=== PATIENT | female | born 1985 | race Two or more races ===

== ENCOUNTER 2024-10-12 00:06 | Emergency (ER) | payer MEDICAID, SELFPAY ==
[2024-10-12 00:07] VITALS: BMI 26.6
[2024-10-12 00:27] VITALS: BP 122/78; PULSE 68; RESP 16; TEMP 36.8; O2SAT 99
--- NOTE | 2024-10-12 00:36 | XR_ITS ---
Examination: Ultrasound soft tissue left extremity left axilla Technique: High resolution grayscale sonographic images soft tissue left axilla Exam date and time: October 12, 2024 0301 hrs. Indications: Palpable lumps and pain in the left arm.. This week, positive for shingles Findings: Multiple partially cystic structures in the left axilla which may represent necrotic lymph nodes, the largest 3.6 cm Impression: Multiple left axillary lymph nodes, clinical correlation advised Consider CT chest post intravenous contrast follow-up
--- NOTE | 2024-10-12 00:40 | PD.EDRME ---
Rapid Medical Screening Exam RME Arrival date/time: 10/12/24 00:06 39 year old female present to ED for c/o of left armpit mass today. + shingle infection I have greeted and performed a focused initial assessment of this patient. A comprehensive ED assessment and evaluation of the patient, analysis of all test results, and completion of the medical decision making process will be conducted by additional ED providers. Chief Complaint: Skin/Abscess/Foreign Body Time Seen by Provider: 10/12/24 00:10 Vital signs: Vital Signs Temperature 98.2 F 10/12/24 00:27 Pulse Rate 68 10/12/24 00:27 Respiratory Rate 16 10/12/24 00:27 Blood Pressure 122/78 10/12/24 00:27 Pulse Oximetry (%) 99 10/12/24 00:27 Oxygen Delivery Method Room Air 10/12/24 00:27
[2024-10-12] MEDS: GABAPENTIN 300 MG CAPSULE PO (01:23)
--- NOTE | 2024-10-12 03:57 | PRELIM_ITS ---
Left upper extremity ultrasound. October 12, 2024 0301 hoursClinical history: Left armpit lump mass/l ymph node +shingle infectionComparison: NoneFindings:Multiple left axillary lymph nodes noted, the la rgest measuring 3.6 x 0.7 x 1.7 cm and the other lymph nodes measuring 1 cm or smaller in maximal dim ension. Overall there appeared to be increased number of left axillary lymph nodes.Impression:Left a xillary lymphadenopathy of unclear etiology. Ipsilateral breast carcinoma should be excluded. Recom mend clinical follow-up to document resolution. Report Electronically Signed By: Misael Deleon 10/12/2024 3:56:13 AM [EST]
--- NOTE | 2024-10-12 04:37 | EDNOTE_ITS ---
ED Skin Abcess FB-RME/HPI General Chief complaint: Skin/Abscess/Foreign Body Stated complaint: PAINFUL RASH ON LEFT ABDOMEN Time Seen by Provider: 10/12/24 00:10 Arrival date/time: 10/12/24 00:06 39 year old female present to emergency room with c/o of abdominal rash and arm pit pain. Diagosed with shingles recently and on antiviral LOCATION: left axially and abd region rash SEVERITY: Symptoms are described as being severe with limitations on activities of daily living QUALITY: Symptoms are described as being dull or achy CONTEXT: The patient is unable to identify any inciting events. DURATION/TIMING: The symptoms started approximately one day ago and have been constant this then, and have been progressive getting worse. ASSOCIATED SYMPTOMS: The patient is unable to identify any other associated symptoms. MODIFYING FACTORS: The patient is unable to identify any alleviating or aggravating symptoms. PERTINENT ROS: denies IVDU, states no immunocompromising condition, denies any penetrating trauma, no fever, no unexplained nausea or vomiting, no headache, no chest pain REVIEW OF SYSTEMS: See History of Present Illness - with the exception of those mentioned in the history of present illness, all other systems reviewed and reported as negative GENERAL: In general the patient is awake, interactive, in an emergency department gurney. HEAD/EYES/EARS/NOSE/THROAT: normo-cephalic, atraumatic, mucus membranes are moist, anicteric, palpebral conjunctiva is pink, trachea is midline. CARDIOVASCULAR: regular rate and regular rhythm, no murmurs, heart sounds are not distant, strong pulses in all four extremities that are equal and symmetric bilateral upper and lower extremities, normal capillary refill. CHEST/PULMONARY: normal chest rise and fall, good air movement, clear to auscultation bilaterally, normal inspiratory to expiratory ratios without evidence of respiratory distress. NECK: No midline/Paraspinal tenderness, no step off ROM/Strenght intact No Kernig and bruzinski sign. No trauma ABDOMEN: soft, + shingle rash on rightside of abdominal no masses appreciated BACK: normal range of motion without pain. NEUROLOGICAL: cranio-facial features are symmetric, moves all four extremities equally without obvious limitations or weakness. EXTREMITY: no tenderness to palpation over the long bones or large joints of the bilateral upper and lower extremities, no joint swelling, no joint erythema, no signs of trauma, no unilateral leg swelling and no peripheral edema. SKIN: warm, dry, well-perfused, no jaundice, no rash, no telangiectasias or petechia. PSYCH: calm, cooperative, no evidence of psychosis or agitation RME / HPI RME / HPI narrative: 10/12/24 00:06 39 year old female present to ED for c/o of left armpit mass today. + shingle infection I have greeted and performed a focused initial assessment of this patient. A comprehensive ED assessment and evaluation of the patient, analysis of all test results, and completion of the medical decision making process will be conducted by additional ED providers. Related Data Home Medications ?Medication ?Instructions ?Recorded ?Confirmed aspirin 81 mg chewable tablet 81 mg PO QDAY 03/15/22 05/04/22 vit no.95-ferrous 1 tab PO BID 03/15/22 05/04/22 fumarate 28 mg-folic acid 800 mcg tablet () ferrous sulfate 325 mg (65 mg 325 mg PO BID 05/04/22 05/04/22 iron) tablet (Iron (ferrous sulfate)) Previous Rx's ?Medication ?Instructions ?Recorded docusate sodium 100 mg capsule 100 mg PO BID #60 caps 05/04/22 (Colace) ibuprofen 600 mg tablet 600 mg PO Q6H PRN pain #60 tabs 05/04/22 lanolin 50 % topical ointment 1 applic topical TID PRN skin 05/04/22 irritation #15 tubes gabapentin 300 mg capsule 300 mg PO QDAY PRN pain #20 caps 10/12/24 Allergies Allergy/AdvReac Type Severity Reaction Status Date / Time hydrocodone Allergy Intermediate Itching Verified 05/04/22 00:22 Course Course Course Narrative: Findings: Multiple left axillary lymph nodes noted, the largest measuring 3.6 x 0.7 x 1.7 cm and the other lymph nodes measuring 1 cm or smaller in maximal dimension. Overall there appeared to be increased number of left axillary lymph nodes. advised pt to follow up with PMD once shingle rash has improved rx: gabapentin for nerve pain continue taking antiviral as prescripted. Quality Measures none Orders Category Date Time Status US extremity nonvascular LMTD Stat Exams 10/12/24 00:36 Taken Gabapentin [Neurontin] Med 10/12/24 00:47 Discontinued 300 mg PO X1 ONE Vital Signs Vital signs: Vital Signs Temperature 98.2 F 10/12/24 00:27 Pulse Rate 68 10/12/24 00:27 Respiratory Rate 16 10/12/24 00:27 Blood Pressure 122/78 10/12/24 00:27 Pulse Oximetry (%) 99 10/12/24 00:27 Oxygen Delivery Method Room Air 10/12/24 00:27 Skin / Abscess / Foreign Body Patient data External records reviewed:: None Clinical information provided by:: patient Social determinants that could affect healthcare access:: none (none ) Patient has the following chronic illnesses:: none How is presenting disease/condition affected by chronic disease/condition?: no chronic disease Evaluation data The following diagnostics were reviewed and interpreted by me:: radiology exam(s) Lab and/or radiology exams considered but not ordered:: none Interpretation Summary: US: Findings: Multiple left axillary lymph nodes noted, the largest measuring 3.6 x 0.7 x 1.7 cm and the other lymph nodes measuring 1 cm or smaller in maximal dimension. Overall there appeared to be increased number of left axillary lymph nodes. Medications / Prescriptions Medications or Prescriptions considered but not ordered:: none Medication administrations:: Medication Administration History Discontinued Medications Gabapentin (Gabapentin 300 Mg Capsule) 300 mg PO X1 ONE Stop: 10/12/24 00:48 Last Admin: 10/12/24 01:23 Dose: 300 mg Documented By: OA as stated above Consultations Consultation(s) initiated? (list below): No Diagnosis Skin/Abscess Differential Diagnosis: viral exanthem, urticaria and other (lymph node enlargement ) Most likely diagnosis given after review of the tests above:: Lymph node enlargement Admission Indicated Admission indicated?: not indicated Admission Request Was there a request for admission?: No Disposition Plan Disposition Plan: Discharge Discharge Attestation Discharge Attestation: The patient and all family members were given an opportunity to ask questions and understood the discharge instructions. Discharge instructions specifically effects, indications for sooner follow up or return to the emergency department, and the expected course of current diagnosis. Patient condition: Stable Discharge Plan Plan Patient Disposition: HOME (Self Care) Prescriptions/Referrals Prescriptions/Med Rec: New gabapentin 300 mg capsule 300 mg PO QDAY PRN (Reason: pain ) Qty: 20 0RF No Action PNV cmb#[id number]-ferrous fumarate-FA [] 28 mg iron- 800 mcg Tablet 1 tab PO BID aspirin 81 mg Tablet,Chewable 81 mg PO QDAY ferrous sulfate [Iron (ferrous sulfate)] 325 mg (65 mg iron) Tablet 325 mg PO BID docusate sodium [Colace] 100 mg capsule 100 mg PO BID Qty: 60 0RF ibuprofen 600 mg tablet 600 mg PO Q6H PRN (Reason: pain) Qty: 60 0RF lanolin 50 % ointment 1 applic topical TID PRN (Reason: skin irritation) Qty: 15 0RF Referrals: Palomo Bedolla PA-C [Primary Care Provider] - In 1 week Problem List Clinical Impression: Lymph nodes enlarged Patient/Caregiver Discharge Instructions Education Materials: Lymphadenopathy Print Language: [place] Stand Alone Forms: [employer] Award Info., Patient Portal Info Letter
[2024-10-12 04:50] VITALS: BP 115/72; PULSE 73; RESP 16; TEMP 36.6; O2SAT 99
== END 2024-10-12 05:15 | disposition home or self-care (01) ==
PROVIDERS: Emergency Provider Emergency Medicine; PCP Physician Assistant
DX: R59.0 Localized enlarged lymph nodes (principal)
CPT/HCPCS: 76882; 99284; A9270